=== PATIENT | female | born 1950 | race Caucasian/White ===

== ENCOUNTER 2016-07-29 09:10 | Day surgery (SDC) | payer MEDICARE, BC ==
[~2016-07-29 09:10] MED LIST: BUPIVACAINE HCL 0.75% INJ/PF (7.5 MG/1 ML) 10 ML SDV OD PRN; CHONDR SU A NA/HYALUR INTRAOC KIT (SURGICARE) ONE; EPINEPHRINE INJ/PF 1 MG/1 ML AMPULE ONE; KETOROLAC TROMETHAMINE 0.45% 4 DROP/0.4 ML DROPERETTE OD PRN; LIDOCAINE 4% INJ/PF (40 MG/ML) 5 ML AMPUL OD PRN
[2016-07-29] MEDS: TETRACAINE HCL 0.5% OPH SOLN 0.6 ML DROPERETTE OD PRN ×2 (09:38→10:00)
[2016-07-29] MEDS: BESIFLOXACIN HCL 0.6% OPH SUSP 5 ML BOTTLE OD PRN ×3 (09:38→10:43)
[2016-07-29] MEDS: CYCLOPENTOLATE 0.2%/PHENYLEPHRINE 1% OPH SOLN 2 ML OD PRN ×3 (09:38→10:03)
[2016-07-29] MEDS: TROPICAMIDE 1% OPH SOLN 3 ML OD PRN ×3 (09:38→10:03)
[2016-07-29] MEDS ORDERED: MIDAZOLAM 2 MG/2 ML INJ ONE ×2 (09:58→09:59)
--- NOTE | 2016-07-29 11:18 | [facility] OPERATIVE REPORT E ---
[facility] Operative Report NAME: CAM SINGH AGE: 65Y DATE OF SURGERY: 07/29/2016 ROOM: PREOPERATIVE DIAGNOSIS: Cataract, right eye. POSTOPERATIVE DIAGNOSIS: Cataract, right eye. PROCEDURE PERFORMED: Phacoemulsification with posterior chamber intraocular lens, right eye. SURGEON: MEGHAN MOORE M.D. ANESTHESIA: Topical with MAC. INDICATIONS FOR SURGERY: Difficulty with glare with night driving. Best corrected visual acuity 20/30. DESCRIPTION OF PROCEDURE: The patient was brought to the Operating Room and placed on the operative table. Following tetracaine drops, topical anesthesia was administered. This consisted of instrument wipe pledgets soaked in a solution of 4% Xylocaine mixed with 0.75% Marcaine in a 1:2 ratio. A 2 x 1 cm pledget was placed in the superior fornix. A 1 x 1 cm pledget was placed in the inferior fornix. The eye was patched shut for 5 minutes. The patch was removed. The eye was sterilely prepped and draped in the usual manner. Lid speculum was placed in the eye. The pledgets were removed. 4-0 black silk sutures were placed around the superior and the inferior rectus muscles to be used as traction. A conjunctival peritomy was made at the 10 o'clock position. Hemostasis was obtained with bipolar cautery. A posterior limbal groove was created using a crescent knife and dissected anteriorly towards the cornea. A sharp point blade was used to create a paracentesis site at the 2 o'clock position. A 2.4 mm keratome was used to enter the anterior chamber through the groove. Viscoelastic was injected into the anterior chamber. An anterior capsulotomy was performed using Utrata forceps in a capsulorrhexis fashion. Hydrodissection and hydrodelineation were performed. Phacoemulsification was performed in [id number] technique. A total of 49 seconds phaco time was used. Following this, the I/A unit was used to remove residual cortex. Viscoelastic was injected into the capsular bag. Intraocular lens model [id number], 18.0 diopters, serial number [id number] was placed in the capsular bag. The I/A unit was used to remove residual viscoelastic. The wound was seen to be watertight under high and low pressure, and no sutures were placed. The intraocular lens was well centered. The pressure was adjusted in the eye to normal pressure. The 4-0 black silk sutures and lid speculum were removed. The eye was shielded after Besivance drops were placed. The patient tolerated the procedure well and was sent to the Recovery Room in good condition. DICTATING PHYSICIAN: MEGHAN MOORE M.D. [id number] PHY#: [id number] ID: [id number] JOB#: [id number] ACCT: [id number] cc:MEGHAN MOORE M.D. >
--- NOTE | 2016-07-29 11:19 | [facility] DISCHARGE SUMMARY E ---
[facility] Discharge Summary NAME: CAM SINGH AGE: 65Y ADMITTED: 07/29/2016 DISCHARGED: 07/29/2016 HOSPITAL COURSE: The patient is a 65-year-old lady who underwent uneventful cataract extraction with intraocular lens implant, right eye, on 07/29/2016. She will be discharged to home. She is instructed to resume preoperative medications, take Tylenol as needed for discomfort, to keep her eye shielded, to use Besivance, Durezol, Ilevro, and Combigan at 3:00 p.m. and 8:00 p.m., and to follow up in my office in 1 day. DICTATING PHYSICIAN: MEGHAN MOORE M.D. [id number] PHY#: [id number] ID: [id number] JOB#: [id number] ACCT: [id number] cc:MEGHAN MOORE M.D. >
== END 2016-07-29 11:25 | disposition home or self-care (01) ==
LOC: SC 09:10
PROVIDERS: ATTEND Ophthalmology
PROC: 08RJ3JZ Replacement of Right Lens with Synthetic Substitute, Percutaneous Approach (ICD-10-PCS; principal; 2016-07-29 10:30)
DX: H25.11 Age-related nuclear cataract, right eye (principal); Z96.1 Presence of intraocular lens; H40.1231 Low-tension glaucoma, bilateral, mild stage; M19.90 Unspecified osteoarthritis, unspecified site; E11.9 Type 2 diabetes mellitus without complications; I49.9 Cardiac arrhythmia, unspecified; R01.1 Cardiac murmur, unspecified; Z88.5 Allergy status to narcotic agent; Z79.84 Long term (current) use of oral hypoglycemic drugs
CPT/HCPCS: 66984; 82962; V2632; J2250; J3490 ×3; A9270; J0171; 142

== ENCOUNTER 2018-10-16 11:02 | Emergency (ER) | payer MEDICARE, BC ==
[2018-10-16] MEDS ORDERED: FENTANYL CITRATE INJ/PF 100 MCG/2 ML AMPUL IM ONE (12:07)
--- NOTE | 2018-10-16 12:12 | ER Document Report ---
ED Medical Screen (RME) - General Chief Complaint: Shoulder Pain Stated Complaint: FALL/SHOULDER PAIN Time Seen by Provider: 10/16/18 11:40 Mode of Arrival: Wheelchair Information source: Patient Notes: 68-year-old female presented to ED for complaint of left shoulder pain since 9:30 AM when she fell in the front yard. She states she is not sure what she landed on but she has severe pain in her right shoulder and humerus. Patient has deformity to the shoulder. An x-ray of the shoulder and humerus were ordered. Patient took 600 mg of ibuprofen at 1015 with no relief from pain. An x-ray has been completed and she does have a dislocated left shoulder. Patient will be treated with 50 mcg of fentanyl and her shoulder immobilizer until she can be followed up by Dr. Shah who will set the shoulder. I have discussed the patient and treatment with Dr. Shah. I have greeted and performed a rapid initial assessment of this patient. A comprehensive ED assessment and evaluation of the patient, analysis of test results and completion of medical decision making process will be conducted by an additional ED providers. TRAVEL OUTSIDE OF THE [place] IN LAST 30 DAYS: No - HPI Onset: This morning Onset/Duration: Sudden Quality of pain: Sharp, Throbbing Severity: Severe - Related Data Allergies/Adverse Reactions: celecoxib [From Celebrex] Allergy (Verified 10/16/18 11:03) Dysrhythmia codeine [Codeine] Allergy (Verified 10/16/18 11:03) latex Allergy (Verified 10/16/18 11:03) Generalized edema Past Medical History - General Information source: Patient - Social History Cigarette use (# per day): No Chew tobacco use (# tins/day): No Frequency of alcohol use: None Drug Abuse: None Lives with: Family Family history: Reviewed & Not Pertinent - Past Medical History Cardiac Medical History: Reports: Hx DVT, Hx Hypercholesterolemia Pulmonary Medical History: Reports: Hx Bronchitis, Hx Pneumonia EENT Medical History: Reports: Eyes - Glaucoma Neurological Medical History: Reports: Hx Migraine Endocrine Medical History: Reports: Hx Diabetes Mellitus Type 2 - "pre" Renal/ Medical History: Reports: None Malignancy Medical History: Reports: None GI Medical History: Reports: None Musculoskeltal Medical History: Reports Hx Arthritis, Reports Hx Musculoskeletal Deformity - Left knee ACL Skin Medical History: Reports None Psychiatric Medical History: Reports: None Traumatic Medical History: Reports: None Infectious Medical History: Denies: Hx Hepatitis Past Surgical History: Reports: Hx Adenoidectomy, Hx Appendectomy, Hx Hysterectomy, Hx Orthopedic Surgery - left Knee ACL repair, Hx Tonsillectomy, Other - Cataracts bilateral - Immunizations Immunizations up to date: Yes Hx Diphtheria, Pertussis, Tetanus Vaccination: Yes Physical Exam - Vital signs Vitals: Temp Pulse Resp BP Pulse Ox 97.6 F 66 16 167/70 H 98 10/16/18 11:08 10/16/18 11:08 10/16/18 11:08 10/16/18 11:08 10/16/18 11:08 Course - Vital Signs Vital signs: Temp Pulse Resp BP Pulse Ox 97.6 F 66 16 167/70 H 98 10/16/18 11:08 10/16/18 11:08 10/16/18 11:08 10/16/18 11:08 10/16/18 11:08
[2018-10-16] MEDS ORDERED: PROPOFOL INJ 200 MG/20 ML VIAL IV ONE (12:40)
--- NOTE | 2018-10-16 12:40 | RADIOLOGY REPORT (SQ) ---
EXAM DESCRIPTION: HUMERUS LEFT COMPLETED DATE/TIME: 10/16/2018 12:13 pm REASON FOR STUDY: fall injury pain COMPARISON: None. NUMBER OF VIEWS: Two views. TECHNIQUE: Two radiographic images were acquired of the left humerus to include elbow and shoulder i n at least one projection. LIMITATIONS: None. FINDINGS: MINERALIZATION: Normal. BONES: Anterior dislocation of the shoulder. No acute fracture or dislocation. No worrisome bone le sions. SOFT TISSUES: No obvious swelling or foreign body. OTHER: No other significant finding. IMPRESSION: ANTERIOR DISLOCATION OF THE SHOULDER. OTHERWISE NEGATIVE STUDY OF THE LEFT HUMERUS. NO FRACTURE. TECHNICAL DOCUMENTATION: JOB ID: [id number] [employer]- All Rights Reserved Reading location - IP/workstation name: [email or web address]
--- NOTE | 2018-10-16 12:41 | RADIOLOGY REPORT (SQ) ---
EXAM DESCRIPTION: SHOULDER LEFT 2 OR MORE VIEWS COMPLETED DATE/TIME: 10/16/2018 12:13 pm REASON FOR STUDY: fall injury pain COMPARISON: None. NUMBER OF VIEWS: Two views. TECHNIQUE: Frontal and lateral images acquired of the left shoulder. LIMITATIONS: None. FINDINGS: MINERALIZATION: Normal. BONES: No acute fracture or dislocation. No worrisome bone lesions. JOINTS: Anterior dislocation of the humeral head. VISUALIZED LUNGS AND RIBS: No pneumothorax. No rib fracture. SOFT TISSUES: No radiopaque foreign body. OTHER: No other significant finding. IMPRESSION: ANTERIOR DISLOCATION OF THE HUMERAL HEAD. NO FRACTURE VISUALIZED. TECHNICAL DOCUMENTATION: JOB ID: [id number] [employer]- All Rights Reserved Reading location - IP/workstation name: [email or web address]
--- NOTE | 2018-10-16 13:25 | ER Document Report ---
ED Extremity Problem, Upper - General Chief Complaint: Shoulder Pain Stated Complaint: FALL/SHOULDER PAIN Time Seen by Provider: 10/16/18 11:40 Mode of Arrival: Wheelchair TRAVEL OUTSIDE OF THE [place] IN LAST 30 DAYS: No - Related Data Allergies/Adverse Reactions: celecoxib [From Celebrex] Allergy (Verified 10/16/18 11:03) Dysrhythmia codeine [Codeine] Allergy (Verified 10/16/18 11:03) latex Allergy (Verified 10/16/18 11:03) Generalized edema Past Medical History - General Information source: Patient - Social History Smoking Status: Never Smoker Cigarette use (# per day): No Chew tobacco use (# tins/day): No Frequency of alcohol use: None Drug Abuse: None Lives with: Family Patient has suicidal ideation: No Patient has homicidal ideation: No - Past Medical History Cardiac Medical History: Reports: Hx DVT, Hx Hypercholesterolemia Denies: Hx Heart Attack, Hx Hypertension Pulmonary Medical History: Reports: Hx Bronchitis, Hx Pneumonia Denies: Hx Asthma EENT Medical History: Reports: Eyes - Glaucoma Neurological Medical History: Reports: Hx Migraine. Denies: Hx Seizures Endocrine Medical History: Reports: Hx Diabetes Mellitus Type 2 - "pre" Renal/ Medical History: Reports: None. Denies: Hx Peritoneal Dialysis Malignancy Medical History: Reports: None GI Medical History: Reports: None. Denies: Hx Hiatal Hernia, Hx Ulcer Musculoskeletal Medical History: Reports Hx Arthritis, Reports Hx Musculoskeletal Deformity - Left knee ACL Skin Medical History: Reports None Psychiatric Medical History: Reports: None Traumatic Medical History: Reports: None Past Surgical History: Reports: Hx Adenoidectomy, Hx Appendectomy, Hx Hysterectomy, Hx Orthopedic Surgery - left Knee ACL repair, Hx Tonsillectomy, Other - Cataracts bilateral. Denies: Hx Mastectomy, Hx Open Heart Surgery - Immunizations Immunizations up to date: Yes Hx Diphtheria, Pertussis, Tetanus Vaccination: Yes Hx Pneumococcal Vaccination: 07/20/00 Physical Exam - Vital signs Vitals: Temp Pulse Resp BP Pulse Ox 97.6 F 66 16 167/70 H 98 10/16/18 11:08 10/16/18 11:08 10/16/18 11:08 10/16/18 11:08 10/16/18 11:08 Course - Vital Signs Vital signs: Temp Pulse Resp BP Pulse Ox 97.6 F 63 18 152/82 H 100 10/16/18 11:08 10/16/18 12:19 10/16/18 12:29 10/16/18 12:19 10/16/18 12:29
--- NOTE | 2018-10-16 14:17 | ER Document Report ---
ED Extremity Problem, Upper - General Chief Complaint: Shoulder Pain Stated Complaint: FALL/SHOULDER PAIN Time Seen by Provider: 10/16/18 11:40 Primary Care Provider: XUAN KINGSTON DO [ACTIVE STAFF] - Follow up as needed Mode of Arrival: Wheelchair Information source: Patient Notes: 68-year-old female presented to ED for complaint of left shoulder pain about 930 this morning. She states she fell in the front yard. She states she is not sure what she landed on but she has severe pain in the right shoulder and humerus. She had deformity to the shoulder x-ray was completed which showed a dislocated shoulder. Patient states she had taken 600 of ibuprofen at 1015 with no relief. I did speak with Dr. Shah earlier who was going to resect the shoulder. He recommended I gave her 50 mcg of fentanyl. This was given as well as a shoulder immobilizer applied. It was later determined to Dr. Moody would complete the reduction of the dislocation. Patient was moved to room for further care. TRAVEL OUTSIDE OF THE [place] IN LAST 30 DAYS: No - HPI Patient complains to provider of: Injury, Pain, Left, Shoulder Onset: This morning Recent injury: Yes Where: Home, Outdoors Quality of pain: Sharp, Throbbing Severity of pain: Severe Pain Level: 5 Context: Fall Associated symptoms: None Exacerbated by: Movement, Exertion Relieved by: Nothing Similar symptoms previously: No Recently seen / treated by doctor: No - Related Data Allergies/Adverse Reactions: celecoxib [From Celebrex] Allergy (Verified 10/16/18 11:03) Dysrhythmia codeine [Codeine] Allergy (Verified 10/16/18 11:03) latex Allergy (Verified 10/16/18 11:03) Generalized edema Past Medical History - General Information source: Patient - Social History Smoking Status: Never Smoker Cigarette use (# per day): No Chew tobacco use (# tins/day): No Frequency of alcohol use: None Drug Abuse: None Lives with: Family Family History: Reviewed & Not Pertinent Patient has suicidal ideation: No Patient has homicidal ideation: No - Past Medical History Cardiac Medical History: Reports: Hx DVT, Hx Hypercholesterolemia Pulmonary Medical History: Reports: Hx Bronchitis, Hx Pneumonia Denies: Hx Asthma EENT Medical History: Reports: Eyes - Glaucoma Neurological Medical History: Reports: Hx Migraine Endocrine Medical History: Reports: Hx Diabetes Mellitus Type 2 - "pre" Renal/ Medical History: Reports: None Malignancy Medical History: Reports: None GI Medical History: Reports: None Musculoskeletal Medical History: Reports Hx Arthritis, Reports Hx Musculoskeletal Deformity - Left knee ACL, Reports Hx Musculoskeletal Trauma - Dislocated shoulder today Skin Medical History: Reports None Psychiatric Medical History: Reports: None Traumatic Medical History: Reports: None Past Surgical History: Reports: Hx Adenoidectomy, Hx Appendectomy, Hx Hysterectomy, Hx Orthopedic Surgery - left Knee ACL repair, Hx Tonsillectomy, Other - Cataracts bilateral - Immunizations Immunizations up to date: Yes Hx Diphtheria, Pertussis, Tetanus Vaccination: Yes Hx Pneumococcal Vaccination: 07/20/00 Review of Systems - Review of Systems Constitutional: No symptoms reported EENT: No symptoms reported Cardiovascular: No symptoms reported Respiratory: No symptoms reported Gastrointestinal: No symptoms reported Genitourinary: No symptoms reported Female Genitourinary: No symptoms reported Musculoskeletal: Joint pain, Joint swelling - Left shoulder left shoulder, Muscle pain Skin: No symptoms reported Hematologic/Lymphatic: No symptoms reported Neurological/Psychological: No symptoms reported -: Yes All other systems reviewed and negative Physical Exam - Vital signs Vitals: Temp Pulse Resp BP Pulse Ox 97.6 F 66 16 167/70 H 98 10/16/18 11:08 10/16/18 11:08 10/16/18 11:08 10/16/18 11:08 10/16/18 11:08 Interpretation: Normal - General General appearance: Appears well, Alert - HEENT Head: Normocephalic, Atraumatic Eyes: Normal Pupils: PERRL - Respiratory Respiratory status: No respiratory distress Chest status: Nontender Breath sounds: Normal Chest palpation: Normal - Cardiovascular Rhythm: Regular Heart sounds: Normal auscultation Murmur: No - Abdominal Inspection: Normal Distension: No distension Bowel sounds: Normal Tenderness: Nontender Organomegaly: No organomegaly - Back Back: Normal, Nontender - Extremities General upper extremity: Normal color, Normal temperature General lower extremity: Normal inspection, Nontender, Normal color, Normal ROM, Normal temperature, Normal weight bearing. No: Sydney's sign Shoulder: Tender, Deformity, Dislocation, Limited ROM Arm: Tender - Neurological Neuro grossly intact: Yes Cognition: Normal Orientation: AAOx4 Ilda Coma Scale Eye Opening: Spontaneous Ilda Coma Scale Verbal: Oriented [place] Coma Scale Motor: Obeys Commands [place] Coma Scale Total: 15 Speech: Normal Motor strength normal: LUE, RUE, LLE, RLE Sensory: Normal - Psychological Associated symptoms: Normal affect, Normal mood - Skin Skin Temperature: Warm Skin Moisture: Dry Skin Color: Normal Course - Re-evaluation Re-evalutation: 10/16/18 14:14 Dr. Moody completed the conscious sedation and reduction of dislocation of the left shoulder. When she releases the patient I will discharge the patient home with prescription for narcotics and instructions to follow-up with primary care and orthopedics. - Vital Signs Vital signs: Temp Pulse Resp BP Pulse Ox 97.6 F 53 L 20 120/60 100 10/16/18 11:08 10/16/18 12:40 10/16/18 14:19 10/16/18 14:19 10/16/18 14:19 - Diagnostic Test Radiology reviewed: Image reviewed, Reports reviewed Procedures - Immobilization Left Shoulder Time completed: 11:50 Pre-Proc Neuro Vasc Exam: Normal Immobilizer type: Shoulder immobilizer Performed by: PCT Post-Proc Neuro Vasc Exam: Normal Alignment checked and good: No - Needs reduction of dislocation Discharge - Discharge Clinical Impression: Dislocation of left shoulder joint Qualifiers: Encounter type: initial encounter Qualified Code(s): S43.005A - Unspecified dislocation of left shoulder joint, initial encounter Condition: Good Disposition: HOME, SELF-CARE Additional Instructions: Shoulder Dislocation You've had a shoulder dislocation. Even after the shoulder is put back in place, careful care is needed to prevent further problems. As the shoulder dislocated, injury to the joint itself occurred. This must be allowed to heal. The usual treatment is a shoulder immobilizing sling. If this is your first dislocation, it must be left in place until the doctor allows you to remove it. This is important. Ice pack the shoulder frequently. One of the most important aspects of care for a shoulder dislocation is mobility exercises and strengthening exercises. You'll start these when it's safe to start moving the shoulder joint. Be sure to keep your follow-up appointments. If you develop numbness in the arm or hand, weakness of the hand muscles, arm swelling, or arm discoloration, call the doctor or return immediately. Ice & Elevation Apply ice packs frequently against the painful area. Many different schedules are recommended, such as "20 minutes on, 20 minutes off" or "one hour ice, two hours rest." If you need to work, you may need to go longer between ice treatments. You should plan to have the area ice packed AT LEAST one-fourth of the time. The ice should be applied over the wrap, tape, or splint, or over a layer of cloth -- not directly against the skin. Some ice bags have a built-in cloth and can be put directly on the skin. Your injured part should be elevated as much as possible over the next 48 hours. Try to keep the injury above the level of the heart. Avoid use of the injured area. Elevation and rest will decrease the swelling. Ibuprofen Ibuprofen is an excellent, safe drug for pain control. In addition, it has potent antiinflammatory effects which are beneficial, especially in the treatment of injuries, arthritis, or tendonitis. It's best to take ibuprofen with food. Persons with ulcer disease or allergy to aspirin should notify their physician of this before taking ibuprofen. Take the medication exactly as prescribed. Don't take additional doses unless instructed to do so by your doctor. If you develop wheezing, shortness of breath, hives, faintness, stomach pain, vomiting, or dark black stools, return for re-evaluation at once. Oral Narcotic Medication You have been given a prescription for pain control. This medication is a narcotic. It's best taken with food, as nausea can result if taken on an empty stomach. Don't operate machinery or drive within six hours of taking this medication. Do not combine this medicine with alcohol, or with any medication which can cause sedation (such as cold tablets or sleeping pills) unless you get permission from the physician. Narcotics tend to cause constipation. If possible, drink plenty of fluids and eat a diet high in fiber and fruits. FOLLOW-UP CARE: If you have been referred to a physician for follow-up care, call the physicians office for an appointment as you were instructed or within the next two days. If you experience worsening or a significant change in your symptoms, notify the physician immediately or return to the Emergency Department at any time for re-evaluation. Prescriptions: Oxycodone HCl/Acetaminophen [Percocet 5-325 mg Tablet] 1 tab PO Q6HP PRN #15 tablet PRN Reason: Forms: Elevated Blood Pressure Referrals: XUAN KINGSTON DO [ACTIVE STAFF] - Follow up as needed
--- NOTE | 2018-10-16 14:20 | RADIOLOGY REPORT (SQ) ---
EXAM DESCRIPTION: SHOULDER LEFT 1 VIEW COMPLETED DATE/TIME: 10/16/2018 2:11 pm REASON FOR STUDY: post reduction COMPARISON: 10/16/2018. NUMBER OF VIEWS: One view. TECHNIQUE: Frontal images acquired of the left shoulder. LIMITATIONS: None. FINDINGS: Two images of the shoulder are acquired, both labeled postreduction. One image demonstrat es anterior dislocation of the humeral head. The other image demonstrates satisfactory position. No evidence of fracture. IMPRESSION: POSTREDUCTION IMAGES DESCRIBED. TECHNICAL DOCUMENTATION: JOB ID: [id number] [employer]- All Rights Reserved Reading location - IP/workstation name: [email or web address]
[2018-10-16 14:24] VITALS: BP 120/60
--- NOTE | 2018-10-16 14:34 | ER Document Report ---
Doctor's Note Notes: 10/16/18 14:32 Procedure note: conscious sedation and reduction of a left shoulder dislocation. X-ray was reviewed. Procedure was explained in great detail with the patient as well as her friend. Risks and alternatives were discussed. Consent was signed and placed on the chart. Decision was made to proceed. The patient was placed on a groundwater monitoring technician, oxygen per nasal cannula. Suction was set up, patient was started on IV fluids. IV propofol was used. Patient was initially administered 50 mg. Attempt at reduction was made. There was palpable change in the joint, however I am unable secondary to patient's body habitus to palpate whether or not the patient's joint is in place. Unfortunately x-ray revealed that this was not reviewed. The patient was then given a further 90 mg of IV propofol. She tolerated this extremely well. Once adequate analgesia and sedation was achieved, the patient's shoulder reduced easily with gentle traction and mild external rotation of an abducted left upper extremity. Post reduction films showed complete reduction of the dislocation. No new fracture. The patient's arm was immobilized. She was neurovascularly intact following. She was kept on a monitor her vitals were continued to be checked per protocol. Patient tolerated this well.
== END 2018-10-16 15:00 | disposition home or self-care (01) ==
LOC: ER 11:02
DX: S43.005A Unspecified dislocation of left shoulder joint, initial encounter (principal); W18.30XA Fall on same level, unspecified, initial encounter; Y92.007 Garden or yard of unspecified non-institutional (private) residence as the place of occurrence of the external cause; Z88.6 Allergy status to analgesic agent; Z91.040 Latex allergy status; Z86.718 Personal history of other venous thrombosis and embolism; E78.00 Pure hypercholesterolemia, unspecified; Z90.710 Acquired absence of both cervix and uterus
CPT/HCPCS: 99283; 99152; 73060; 73020; 73030; 23650; J3010; J2704